=== PATIENT | male | born 1980 | race Caucasian/White ===

== ENCOUNTER 2024-03-21 03:10 | Emergency (ER) | payer SELFPAY ==
[2024-03-21 03:10] VITALS: BP 144/84; PULSE 86; RESP 18; TEMP 36.6; O2SAT 96
--- NOTE | 2024-03-21 03:45 | DI.RAD_ITS ---
Exam(s) XR HAND RT COMPLETE EXAM: XR HAND RT COMPLETE CLINICAL HISTORY: punched wall. TECHNIQUE: 2D digital imaging was performed. Three views. COMPARISON: No exams were available for comparison FINDINGS: BONES: Fracture of the 5th metacarpal head without significant angulation. Minimal displacement. No extension to the articular surface. No additional fractures. No bony destructive lesion is seen. JOINTS: No dislocation present. SOFT TISSUE: Swelling around 5th metacarpal head. IMPRESSION: Fracture of the 5th metacarpal head. DATA REPOSITORY: RADIATION DOSE DELIVERED:
--- NOTE | 2024-03-21 03:48 | W.ED.GENAD ---
Discharge Plan Discharge Details Chief Complaint: PsychEval Clinical Impression: Depression with suicidal ideation, Alcohol intoxication, Hand pain Primary Care Provider: Unknown,Unknown ED Provider: Antonette Johnson Home Meds and New Rx's Prescriptions: No Action No Known Home Meds HPI General Mode of arrival: EMS. Date/Time Provider Initiated Documentation: 03/21/24 03:47. Limitations to Documentation: no limitations. Information obtained by: patient and EMS. HPI Narrative: 43yo M with hx depression, not currently on medication, presenting from correctional facility for self injurious behavior. Was in custody for [place] of 0.289; while there he requested water and was denied and then began hitting his head against the wall. He states to me that he was trying to kill himself because I might as well if I can't have water. States he still feels like he wants to hurt himself. Prior SA via overdose, reports he has been in the hospital for psychiatric reasons before but not sure where. Denies PRESCOTT, N/V, vertigo, numbness, tingling, weakness. Reports right hand pain after punching a wall several days ago, right 4th finger swollen. Denies pain or injury elsewhere. Denies hx ETOH withdrawal. Otherwise in his usual state of health with no fevers, chills, rash, chest pain, shorntess of breath, abdominal pain, or other concerns. Related Data Home Medications ?Medication ?Instructions ?Recorded ?Confirmed Unknown [No Known Home Meds] 03/21/24 03/21/24 Allergies Allergy/AdvReac Type Severity Reaction Status Date / Time No Known Allergies Allergy Unverified 03/21/24 03:20 General Stated Complaint: PsychEval NEL: 2 Review of Systems Narrative: see HPI Exam Narrative Exam Narrative: GENERAL: Alert, no acute distress. Mildly intoxicated. SKIN: Warm and well perfused. No rashes, bruises, discolorations or abrasions. HEAD: Atraumatic, normocephalic without edema, discoloration or evidence of trauma. Facial bones without deformities or tenderness. EYES: PERRL. No scleral icterus or conjunctival injection. EARS: Normal appearing pinnae. No hemotympanum. NOSE: No discharge, tenderness, laxity. No nasal septal hematoma. MOUTH: No malocclusion or trismus. Moist mucus membranes without blood. NECK: Trachea midline. No discolorations or edema. Full pain free ROM at c-spine with flexion, extension, and lateral rotation CV: Regular rate and rhythm, Normal s1 and s2. No murmurs, rubs, or gallops. PV: Radial pulses 2+ bilaterally and symmetric. Dorsalis pedis pulses 2+ bilaterally and symmetric. CHEST: No abrasions or ecchymosis. Chest symmetric with respirations. No chest wall tenderness. Lungs are clear to auscultation bilaterally. ABDOMEN: No ecchymosis or abrasions. Soft, nondistended, nontender. BACK: Spine without bony tenderness, no step offs. MSK: Right 4th digit swollen, otherwise no gross deformities or discolorations or lesions. Sensation intact to light touch throughout right hand, brisk capillary refill all digits. No snuffbox tenderness. NEURO: ? GCS 15.? PERRL.? EOMI.? Fluent speech, no dysarthria. Motor- 5/5 strength symmetric bilateral upper and lower extremities; reduced pest controller strength right hand 2/t pain Sensation- ?Intact to light touch and symmetric multiple dermatomes including upper and lower extremities CRANIAL NERVES: II: Pupils equal and reactive, III, IV, : EOM intact, no gaze preference or deviation, no nystagmus. V: normal sensation in V1, V2, and V3 segments bilaterally VII: no asymmetry, no nasolabial fold flattening VIII: normal hearing to speech IX, X: normal palatal elevation, no uvular deviation XI: 5/5 head turn and 5/5 shoulder shrug bilaterally XII: midline tongue protrusion PSYCH: Calm, cooperative.? Well groomed.? Mood crappy, affect congruent.? Speech with normal volume, rate, rythym and tone. Linear and goal directed.? + SI with plan to OD on pills. Denies HI/AH/VH. ? Does not appear to be responding to internal stimuli. Course Vital Signs Vital signs: Vital Signs Temperature 36.6 C 03/21/24 03:10 Pulse 86 03/21/24 03:10 Respiratory Rate 18 03/21/24 03:10 Blood Pressure 144/84 H 03/21/24 03:10 Pulse Oximetry 96 03/21/24 03:10 Temperature 36.6 C 03/21/24 03:10 Temperature Source Temporal Artery Scan 03/21/24 03:10 Pulse 86 03/21/24 03:10 Respiratory Rate 18 03/21/24 03:10 Blood Pressure 144/84 H 03/21/24 03:10 Blood Pressure Position Sitting 03/21/24 03:10 Pulse Oximetry 96 03/21/24 03:10 Oxygen Delivery Method Room Air 03/21/24 03:10 Oxygen Flow Rate 0 03/21/24 03:10 Pain Level 0 03/21/24 03:10 Medical Decision Making 43yo M with hx depression, not currently on medication, presenting from correctional facility for self injurious behavior. Was in custody for [place] of 0.289; while there he requested water and was denied and then began hitting his head against the wall. He states to me that he was trying to kill himself because I might as well if I can't have water. States he still feels like he wants to hurt himself. Prior SA via overdose. Right hand pain after punching wall several days ago, otherwise denies pain or injury. Normal neurologic exam. Low suspicion for acute intracranial injury; would not get head CT. Nothing to suggest c-spine injury, low-risk mechanism, would not get CT c spine. No history of ETOH withdrawal and no medical problems. Will not get labs. Given right hand pain, will get xr to evaluate for fracture. Otherwise pending clinical sobriety for medical clearance; if remains suicidal when sober would consult [facility]. Will be signed out to oncoming physician, plan to followup XR and reassess when sober. Quality:[facility] Health Related Social Needs: Health related social needs inadequate housing(Z59.1), housing instability, housed, with risk of homelessness(Z59.811), food insecurity(Z59.41), transportation insecurity(Z59.82) [facility] All Active Problems (Updated 03/21/24 @ 07:40 by Antonette Johnson MD) Hand pain (Acute) Alcohol intoxication (Acute) Depression with suicidal ideation (Acute) Social History Smoking/Tobacco Use Status: Current every day Tobacco Type: cigarettes Smoking risk assessment performed?: Yes Alcohol Intake: current Alcohol Intake frequency: 3 or more drinks per day Alcohol type: beer and hard liquor Drug use: Daily Substance use type: marijuana Housing: homeless Do you feel safe at home: No Do you feel safe in your relationship?: No Additional Social history: States I used to live in the homeless [facility] but we got kicked out. PAWSS Have you Been Recently Intoxicated or Drunk Within the Last 30 days?: Yes Have you Ever Experienced Previous Episodes of Alcohol Withdrawal?: Yes Have you ever Experienced Withdrawal Seizures?: No Have you ever Experienced Delirium Tremens(DT)s?: Yes Have you ever undergone Alcohol Rehabilitation Treatment (i.e, inpt ot outpatient treatment programs)?: No Have you ever Experienced Blackouts?: Yes Have you ever Combined Alcohol with other Downers within the last 90 days?: No Have you ever Combined Alcohol with any other Substance of Abuse during the last 90 days?: Yes Positive Blood Alcohol level on Presentation? [PCS.BAL]: Yes Evidence of Increased Autonomic Activity (i.e. HR>120, tremor, sweating, agitation, nausea)?: No Result: 7
[2024-03-21] MEDS: Ibuprofen 400 MG TAB PO (03:53)
[2024-03-21] MEDS: Nicotine 4 MG GUM CH (04:47)
--- OUTSIDE RECORDS SUMMARY | 2024-03-21 04:56 | XMS_ITS | Encounter Summary ---
Author Organization [facility] Address [address] [place] [address] Care Team Providers Care Applications Trainer Name Role Phone None, Provider Primary Care Provider Unavailabl e Encounter Details Date Type Department Care Team (Latest Contact Info) Description 11/14/2023 Travel Social History Tobacco Use Types Packs/Day Years Used Date Smoking Tobacco: Never Assessed Interpersonal Safety Answer Date Record ed Physically Hurt Never 10/27/2019 Verbally Threaten Not on file 10/27/2019 Sex and Gender Information Value Date Recorded Sex Assigned at Male 03/20/2024 23:54 EST Legal Sex Male 22:07 EDT Gender Identity Male 03/20/2024 23:54 EST Sexual Orientation Not on file documented as of this encounter Plan of Treatment Not on file documented as of this encounter Visit Diagnoses Not on filedocumented in this encounter Care Teams Applications Trainer Relationship Specialty Start Date End Date None, Provider PCP - General 11/14/23 documented as of this encounter
--- OUTSIDE RECORDS SUMMARY | 2024-03-21 04:56 | XMS_ITS | Encounter Summary ---
Author Organization [facility] Address [address] [place] [address] Care Team Providers Care Dobie Worker Name Role Phone Unknown, Provider Primary Care Provider Unava ilable Encounter Details Date Type Department Care Team (Late st Contact Info) Description 10/31/2017 Historical Results Only [facility] Radiology Results [address] [place], [place] [id number] Jovany Zimmer MD [address] [place] [address] Social History Tobacco Use Types Packs/Day Years Used Date Smoking Tobacco: Never Assessed Sex and Gender Information Value Date Recorded Sex Assigned at Male 03/20/2024 23:54 EST Legal Sex Male 22:07 EDT Gender Identity Male 03/20/2024 23:54 EST Sexual Orientation Not on file documented as of this encounter Plan of Treatment Not on file documented as of this encounter Visit Diagnoses Not on filedocumented in this encounter Care Teams Dobie Worker Relationship Specialty Start Date End Date Unknown, Provider, PCP - General 10/31/17 11/13/23 documented as of this encounter
--- OUTSIDE RECORDS SUMMARY | 2024-03-21 04:56 | XMS_ITS | Encounter Summary ---
Author Organization [facility] Address [address] [place] [address] Care Team Providers Care Recovery Advocate Name Role Phone Unknown, Provider Primary Care Provider Unava ilable Encounter Details Date Type Department Care Team (Late st Contact Info) Description 11/01/[address] [facility] Radiology Results [address] [place], [place] [id number] Jovany Zimmer MD [address] [place] [address] Social History Tobacco Use Types Packs/Day Years Used Date Smoking Tobacco: Never Assessed Sex and Gender Information Value Date Recorded Sex Assigned at Male 03/20/2024 23:54 EST Legal Sex Male 22:07 EDT Gender Identity Male 03/20/2024 23:54 EST Sexual Orientation Not on file documented as of this encounter Plan of Treatment Not on file documented as of this encounter Procedures Procedure Name Priority Date/Time Associated Diagnosis Comments XR HAND RIGHT 3 OR MORE VIEWS 11/01/2017 0:35 EDT documented in this encounter Results * XR HAND RIGHT 3 OR MORE VIEWS (11/01/2017 0:35 EDT) Anatomical Region Laterality Modality Upper Extremities Right Other 11/01/2017 0:35 EDT Narrative 11/01/2017 0:35 EDT ? EXAM: RADIOLOGY/HAND RIGHT 3+VIEW ? EX. D/ (0012) ? CLINICAL INFORMATION: ? dog bite, ring finger. ? EXAM: ? XR Right Hand Complete, 3 or More Views ? CLINICAL HISTORY: ? 36 years old, male; Pain; Hand; Right; Additional info: Dog ? bite, ring finger. ? TECHNIQUE: ? Frontal, lateral and oblique views of the right hand. ? COMPARISON: ? No relevant prior studies available. ? FINDINGS: ? No acute fracture is seen. There is no foreign body. The joint ? spaces are well-maintained. There appears to be an old healed ? fracture involving the fifth metacarpal head. ? IMPRESSION: ? No acute fracture or foreign body. ? REPORT SIGNED IN OTHER VENDOR SYSTEM 11/01/2017 ?Reported By: Gabo Lopez MD ? CC: ? Transcribed Date/Time: 11/01/2017 (0035) ? Icu Manager: ? Printed Date/Time: 09/14/2018 (0802) ? PAGE 1 ? Signed Report ? Procedure Note Gabo Lopez MD - 01/30/2019 EXAM: RADIOLOGY/HAND RIGHT 3+VIEW EX. D/ (0012) CLINICAL INFORMATION: dog bite, ring finger. EXAM: XR Right Hand Complete, 3 or More Views CLINICAL HISTORY: 36 years old, male; Pain; Hand; Right; Additional info: Dog bite, ring finger. TECHNIQUE: Frontal, lateral and oblique views of the right hand. COMPARISON: No relevant prior studies available. FINDINGS: No acute fracture is seen. There is no foreign body. The joint spaces are well-maintained. There appears to be an old healed fracture involving the fifth metacarpal head. IMPRESSION: No acute fracture or foreign body. REPORT SIGNED IN OTHER VENDOR SYSTEM 11/01/2017 Reported By: Gabo Lopez MD CC: Transcribed Date/Time: 11/01/2017 (0035) Icu Manager: Printed Date/Time: 09/14/2018 (0802) PAGE 1 Signed Report Jovany Ryne Zimmer MD [facility] Final Result documented in this encounter Visit Diagnoses Not on filedocumented in this encounter Care Teams Recovery Advocate Relationship Specialty Start Date End Date Unknown, Provider, PCP - General 10/31/17 11/13/23 documented as of this encounter
--- OUTSIDE RECORDS SUMMARY | 2024-03-21 04:56 | XMS_ITS | Encounter Summary ---
Author Organization [facility] Address [address] [place] [address] Care Team Providers Care Structural Manager Name Role Phone None, Provider Primary Care Provider Unavailabl e Reason for Visit * Reason Comments Medical Evaluation Alcohol Intoxication Patient comes in wi th PD, patient was belligerent at homeless assisted and pd was called. Pd attempted to find a solution for patient to go somewhere however he was largely uncooperative. [place] of 363 for PD Encounter Details Date Type Department Care Team (Late st Contact Info) Description 03/21/2024 - 03/21/2024 0:09 EST Emergency [facility] Emergency Department [address] [place], [place] [id number] Seb Abernathy MD [address] [place] [address] Acute alcoholic intoxication without complication ([facility]-CMS) (Primary Dx) Discharge Disposition: Home or Self Care Social History Tobacco Use Types Packs/Day Years [...] on file documented as of this encounter Last Filed Vital Signs Vital Sign Reading Time Taken Comments Blood Pressure 147/97 03/21/2024 0000 EST Pulse 94 03/21/2024 0000 EST Temperature 36.7 ??C (98 ??F) 03/21/2024 0000 EST Respiratory Rate 17 03/21/2024 0000 EST Oxygen Saturation 100% 03/21/2024 0000 EST Inhaled Oxygen Concentration - - Weight - - Height - - Body Mass Index - - documented in this encounter Discharge Instructions * Discharge Instructions* Seb Abernathy MD - 03/21/2024 0:03 EST [facility] about [facility] Return for any other concerns. * Attachments The following attachments cannot be sent through Care Everywhere. * Alcohol Use Disorder: General Info (Ethiopian) documented in this encounter Discharge Disposition Disposition Code Departure Means Destination Comment s Home or Self [facility] documented in this encounter ED Notes * Seb Abernathy MD - 03/20/2024 2192 EST Emergency Department Visit Medical Decision Making 43-year-old male presents with law enforcement after being belligerent at a homeless assisted while intoxicated prior to arrival. On enforcement attempted to find a solution for patient to go somewhathowever he was largely uncooperative. Blood alcohol level of 363 [facility] Patient cooperative upon arrival to emergency department. Patient no acute distress. Patient has nocomplaints. Patient medically cleared for discharge by law enforcement. Patient given water. Patient discharged into the care of law enforcement. Return precautions provided. Medical Decision Making Problems Addressed: Acute alcoholic intoxication without complication (HCC-CMS): acute illness or injury Final diagnoses: Acute alcoholic intoxication without complication (HCC-CMS) Disposition: Discharged Chief complaint: Acute alcohol intoxication HPI Hernan Borrego is a 43 y.o. patient presents with law enforcement after being belligerent at a homeless assisted while intoxicated prior to arrival. On enforcement attempted to find a solution forpatient to go somewhat however he was largely uncooperative. Blood alcohol level of 363 with breathalyzer performed by law enforcement. History was provided by: Patient Records reviewed include: Chart review Patient's pertinent PMH, FH, SH were reviewed and edited as necessary. Nursing notes reviewed. A medical screening exam was performed. Physical Exam BP (!) 147/97 Pulse 94 Temp 36.7 ??C (98 ??F) (Tympanic) Resp 17 SpO2 100% Physical Exam Vitals and nursing note reviewed. Constitutional: General: He is not in acute distress. Appearance: Normal appearance. He is not ill-appearing. HENT: Head: Normocephalic and atraumatic. Right Ear: External ear normal. Left Ear: External ear normal. Mouth/Throat: Mouth: Mucous membranes are dry. Comments: ETOH halitosis Eyes: Comments: Injected conjunctiva bilaterally Pulmonary: Effort: Pulmonary effort is normal. Musculoskeletal: General: Normal range of motion. Cervical back: Normal range of motion. Skin: General: Skin is warm and dry. Neurological: Mental Status: He is alert and oriented to person, place, and time. Psychiatric: Mood and Affect: Mood normal. Behavior: Behavior normal. Procedures Procedures documented in this encounter Plan of Treatment Not on file documented as of this encounter Visit Diagnoses Diagnosis Acute alcoholic intoxication without complication (HCC-CMS)- Primary documented in this encounter Care Teams Structural Manager Relationship Specialty Start Date End Date None, Provider PCP - General 11/14/23 documented as of this encounter
--- OUTSIDE RECORDS SUMMARY | 2024-03-21 04:56 | XMS_ITS | Referral Summary ---
Author Organization [facility] Address [address] [place] [address] Care Team Providers Care Integrated Logistics Programs Director Name Role Phone None, Provider Primary Care Provider Unavailabl e Encounters Date Type Department Care Team Description 03/21/2024 - 03/21/2024 0:09 EST Emergency [facility] Emergency Department [address] [place] [address] Seb Abernathy MD Acute alcoholic intoxication without complication (HCC-CMS) (Primary Dx) Discharge Disposition: Home or Self Care from Last 3 Months Allergies No known active allergies Social History Tobacco Use Types Packs/Day Years Used Date Smoking Tobacco: Never Assessed Interpersonal Safety Answer Date Record ed Physically Hurt Never 10/27/2019 Verbally Threaten Not on file 10/27/2019 Sex and Gender Information Value Date Recorded Sex Assigned at Male 03/20/2024 23:54 EST Legal Sex Male 22:07 EDT Gender Identity Male 03/20/2024 23:54 EST Sexual Orientation Not on file Last Filed Vital Signs Vital Sign Reading Time Taken Comments Blood Pressure 147/97 03/21/2024 0000 EST Pulse 94 03/21/2024 0000 EST Temperature 36.7 ??C (98 ??F) 03/21/2024 0000 EST Respiratory Rate 17 03/21/2024 0000 EST Oxygen Saturation 100% 03/21/2024 0000 EST Inhaled Oxygen Concentration - - Weight 65.8 kg (145 lb) 11/14/2023 1355 EDT Height 175.3 cm (5' 9) 11/14/2023 1355 EDT Body Mass Index 21.41 11/14/2023 1355 EDT Plan of Treatment Not on file Care Teams Integrated Logistics Programs Director Relationship Specialty Start Date End Date None, Provider PCP - General 11/14/23
--- OUTSIDE RECORDS SUMMARY | 2024-03-21 04:56 | XMS_ITS | Encounter Summary ---
Author Organization [facility] Address [address] [place] [address] Care Team Providers Care Field Crop Farmer Name Role Phone Unknown, Provider MD Primary Care Provider Unava ilable Encounter Details Date Type Department Care Team (Latest Contact Info) Description 11/01/2017 18:16 EDT - 11/01/2017 23:59 EDT Hospital Encounter [facility] [address] [place] [address] Unknown, ProviderMD Discharge Disposition: Home or Self Care Social History Tobacco Use Types Packs/Day Years Used Date Smoking Tobacco: Never Assessed Sex and Gender Information Value Date Recorded Sex Assigned at Male 03/20/2024 23:54 EST Legal Sex Male 22:07 EDT Gender Identity Male 03/20/2024 23:54 EST Sexual Orientation Not on file documented as of this encounter Discharge Disposition Disposition Code Departure Means Destination Home or Self Half-Way documented in this encounter Plan of Treatment Not on file documented as of this encounter Visit Diagnoses Not on filedocumented in this encounter Care Teams Field Crop Farmer Relationship Specialty Start Date End Date Unknown, Provider, PCP - General 10/31/17 11/13/23 documented as of this encounter
--- OUTSIDE RECORDS SUMMARY | 2024-03-21 04:56 | XMS_ITS | Clinical Summary ---
Author Organization [facility] Address [address] [place] [address] Care Team Providers Care Coffee Sommelier Name Role Phone None, Provider Primary Care Provider Unavailabl e Allergies No known active allergies Encounters Date Type Department Care Team Description 03/21/2024 - 03/21/2024 0:09 EST Emergency [facility] Emergency Department [address] [place] [address] Seb Abernathy MD Acute alcoholic intoxication without complication (HCC-CMS) (Primary Dx) Discharge Disposition: Home or Self Care from Last 3 Months Social History Tobacco Use Types Packs/Day Years [...] 21.41 11/14/2023 1355 EDT Plan of Treatment Health Maintenance Due Date Last Done Comments Hepatitis C Screen 1982 Hepatitis B Vaccine (1 of 3 - 19+ 3-dose series) 12/04 COVID-19 Vaccine (2023- season) 2023 Care Teams Coffee Sommelier Relationship Specialty Start Date End Date None, Provider PCP - General 11/14/23
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
[2024-03-21 05:19] LABS: *AMPHETAMINES SCREEN URINE Negative (Negative); *BARBITURATES SCREEN URINE Negative (Negative); *BENZODIAZEPINES SCREEN URINE Negative (Negative); Cannabinoids THC Positive (Negative); Cocaine Screen,Urine Negative (Negative); METHADONE URINE SCREEN Negative (Negative); OPIATES URINE SCREEN Negative (Negative)
[2024-03-21 05:23] LABS: Tricyclic Antidepressants Negative (Negative)
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
[2024-03-21 08:21] VITALS: BP 110/77; PULSE 83; RESP 20; O2SAT 97
== END 2024-03-21 09:09 | disposition home or self-care (01) ==
PROVIDERS: Student in an Organized Health Care Education/Training Program; Emergency Provider Emergency Medicine
DX: S62.306A Unspecified fracture of fifth metacarpal bone, right hand, initial encounter for closed fracture (principal); F32.A Depression, unspecified; R45.851 Suicidal ideations; F10.920 Alcohol use, unspecified with intoxication, uncomplicated; Z59.811 Housing instability, housed, with risk of homelessness; Z59.41 Food insecurity; Z59.82 Transportation insecurity; F17.210 Nicotine dependence, cigarettes, uncomplicated
CPT/HCPCS: 00123; 29125; 80307; 99285; 73130; 99284